=== PATIENT | male | born 1960 | race Caucasian/White ===

== ENCOUNTER 2017-08-06 18:23 | Inpatient (IN) | payer SELFPAY ==
[~2017-08-06 18:23] MED LIST: ASPI81TA82 PO; CARV3.125 PO; LISI5 PO; MECL25 PO
[2017-08-06 18:28] VITALS: BP 146/88; PULSE 75; RESP 18; TEMP 98.5; O2SAT 98
[2017-08-06 18:58] LABS: AUTOMATED NEUTROPHIL # 6.8 TH/MM3 (1.8-7.7); BASOPHIL # 0.1 TH/MM3 (0-0.2); BASOPHIL % 0.8 % (0.0-2.0); EOSINOPHIL # 0.3 TH/MM3 (0-0.4); EOSINOPHIL % 3.2 % (0.0-4.0); HEMATOCRIT 40.3 % (39.0-51.0); HEMOGLOBIN 13.5 GM/DL (13.0-17.0); LYMPH % 19.6 % (9.0-44.0); LYMPHOCYTE # 1.9 TH/MM3 (1.0-4.8); MEAN CELL VOLUME 92.6 FL (80.0-100.0); MEAN CORPUSCULAR HEMOGLOBIN 31.1 PG (27.0-34.0); MEAN CORPUSCULAR HGB CONC 33.6 % (32.0-36.0); MEAN PLATELET VOLUME 8.6 FL (7.0-11.0); MONO % 8.1 % (0.0-8.0); MONOCYTE # 0.8 TH/MM3 (0-0.9); NEUT % 68.3 % (16.0-70.0); PLATELET COUNT 192 TH/MM3 (150-450); RED BLOOD COUNT 4.35 MIL/MM3 (4.50-5.90); RED CELL DISTRIBUTION WIDTH 13.7 % (11.6-17.2); WHITE BLOOD COUNT 9.9 TH/MM3 (4.0-11.0)
[2017-08-06 19:10] LABS: BICARBONATE 25.1 MEQ/L (21.0-32.0); BLOOD UREA NITROGEN 32 MG/DL (7-18); CALCIUM 8.4 MG/DL (8.5-10.1); CHLORIDE 107 MEQ/L (98-107); CREATININE 1.56 MG/DL (0.60-1.30); GLOMERULAR FILTRATION RATE 46 ML/MIN (>89); GLUCOSE,RANDOM 130 MG/DL (74-106); SODIUM (NA) 139 MEQ/L (136-145)
[2017-08-06 19:14] LABS: TROPONIN I 0.09 NG/ML (0.02-0.05)
[2017-08-06] MEDS ORDERED: SODIUM CHLOR 0.9% 1000 ML INJ 1,000 ML IV ONE (19:30)
--- NOTE | 2017-08-06 19:41 | PD ---
HPI Chief Complaint: OD/ Ingestion Time Seen by Provider: 19:13 Travel History International Travel<30 days: No Contact w/Intl Traveler<30days: No Traveled to known affect area: No History of Present Illness HPI 57-year-old male arrives to the ER with complaints of abusing methamphetamines and cocaine. He also reports chest pain for 4 weeks a few times daily. He reports visual problems with objects in his hhysh-no-pusy evidently shifting back and forth and to and fro. He denies suicidal/homicidal ideation. He had aortic valve replacement. He reports several years of sobriety with relapse just yesterday. PFSH Past Medical History Atrial Fibrillation: Yes Cardiovascular Problems: Yes (ENDOCARDITIS) Diminished Hearing: No Past Surgical History Cardiac Surgery: Yes (AORTIC VALVE REPLACEMENT) Social History Alcohol Use: Yes Tobacco Use: Yes (1/2 PPD ) Substance Use: No (FORMER COCAINE IV DRUG USE) Allergies-Medications (Allergen,Severity, Reaction): Coded Allergies: No Known Allergies (Verified Adverse Reaction, Unknown, 08/06/17) Reported Meds & Prescriptions Reported Meds & Active Scripts Active Antivert (Meclizine HCl) 25 Mg Tab 25 Mg PO Q8HR PRN Prinivil 5 mg (Lisinopril) 5 Mg Tab 5 Mg PO DAILY 30 Days Coreg 3.125 mg (Carvedilol) 3.125 Mg Tab 3.125 Mg PO Q12HR 30 Days Aspir-81 (Aspirin) 81 Mg Tab 81 Mg PO DAILY 30 Days Review of Systems Except as stated in HPI: all other systems reviewed are Neg General / Constitutional: No: Fever Physical Exam Narrative GENERAL: 57-year-old male pleasant well-nourished well-developed Vital Signs Date Time Temp Pulse Resp B/P (MAP) Pulse Ox O2 Delivery O2 Flow Rate FiO2 08/06/17 18:28 98.5 75 18 146/88 (107) 98 SKIN: Warm and dry. HEAD: Atraumatic. Normocephalic. EYES: Pupils equal and round. No scleral icterus. No injection or drainage. ENT: No nasal bleeding or discharge. Mucous membranes pink and moist. NECK: Trachea midline. No JVD. CARDIOVASCULAR: Regular rate and rhythm. RESPIRATORY: No accessory muscle use. Clear to auscultation. Breath sounds equal bilaterally. GASTROINTESTINAL: Abdomen soft, non-tender, nondistended. Hepatic and splenic margins not palpable. MUSCULOSKELETAL: Extremities without clubbing, cyanosis, or edema. No obvious deformities. NEUROLOGICAL: Awake and alert. No obvious cranial nerve deficits. Motor grossly within normal limits. Five out of 5 muscle strength in the arms and legs. Normal speech. PSYCHIATRIC: Pressured speech. Reasonably cooperative. Data Data Last Documented VS Vital Signs Date Time Temp Pulse Resp B/P (MAP) Pulse Ox O2 Delivery O2 Flow Rate FiO2 08/06/17 18:28 98.5 75 18 146/88 (107) 98 Orders Orders Electrocardiogram (08/06/17 18:31) Complete Blood Count With Diff (08/06/17 18:31) Basic Metabolic Panel (Bmp) (08/06/17 18:31) Ckmb (Isoenzyme) Profile (08/06/17 18:31) Troponin I (08/06/17 18:31) Iv Access Insert/Monitor (08/06/17 18:31) Ecg Monitoring (08/06/17 18:31) Oxygen Administration (08/06/17 18:31) Oximetry (08/06/17 18:31) Drug Screen, Random Urine (08/06/17 18:31) CKMB (08/06/17 18:46) CKMB% (08/06/17 18:46) Sodium Chlor 0.9% 1000 Ml Inj (Ns 1000 M (08/06/17 19:30) Chest, Pa & Lat (08/06/17 ) Lorazepam Inj (Ativan Inj) (08/06/17 19:45) Aspirin (Aspirin) (08/06/17 19:45) Nitroglycerin 2% Oint (Nitroglycerin 2% (08/06/17 19:45) Morphine Inj (Morphine Inj) (08/06/17 19:45) Enoxaparin Inj (Lovenox Inj) (08/06/17 20:00) Admit Order (Ed Use Only) (08/06/17 ) 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 MARCO.Q8H (08/06/17 20:10) Vital Signs (Adult) Q4H (08/06/17 20:10) Diet Heart Healthy (08/07/17 Breakfast) Activity Bed Rest (08/06/17 20:10) Labs Laboratory Tests Test 08/06/17 18:46 White Blood Count 9.9 TH/MM3 Red Blood Count 4.35 MIL/MM3 Hemoglobin 13.5 GM/DL Hematocrit 40.3 % Mean Corpuscular Volume 92.6 FL Mean Corpuscular Hemoglobin 31.1 PG Mean Corpuscular Hemoglobin Concent 33.6 % Red Cell Distribution Width 13.7 % Platelet Count 192 TH/MM3 Mean Platelet Volume 8.6 FL Neutrophils (%) (Auto) 68.3 % Lymphocytes (%) (Auto) 19.6 % Monocytes (%) (Auto) 8.1 % Eosinophils (%) (Auto) 3.2 % Basophils (%) (Auto) 0.8 % Neutrophils # (Auto) 6.8 TH/MM3 Lymphocytes # (Auto) 1.9 TH/MM3 Monocytes # (Auto) 0.8 TH/MM3 Eosinophils # (Auto) 0.3 TH/MM3 Basophils # (Auto) 0.1 TH/MM3 CBC Comment DIFF FINAL Differential Comment Blood Urea Nitrogen 32 MG/DL Creatinine 1.56 MG/DL Random Glucose 130 MG/DL Calcium Level 8.4 MG/DL Sodium Level 139 MEQ/L Potassium Level 3.9 MEQ/L Chloride Level 107 MEQ/L Carbon Dioxide Level 25.1 MEQ/L Anion Gap 7 MEQ/L Estimat Glomerular Filtration Rate 46 ML/MIN Total Creatine Kinase 245 U/L Creatine Kinase MB 3.0 NG/ML Troponin I 0.09 NG/ML MDM Medical Decision Making Medical Screen Exam Complete: Yes Emergency Medical Condition: Yes Medical Record Reviewed: Yes Differential Diagnosis Altered mental status/psychosis due to infection/environmental exposure/ metabolic abnormality, polypharmacy, alcohol abuse/intoxication, illicit or prescribed drug abuse, malingering/secondary gain, non-organic psychiatric disease, NSTEMI, unstable angina, coronary vasospasm, PE, PTX, aortic dissection , pericarditis, myocarditis, endocarditis, PNA, esophageal disease, aneurysm, musculoskeletal etiologies, anxiety, cocaine/sympathomimetic abuse Narrative Course CBC & BMP Diagram 08/06/17 18:46 Calcium Level 8.4 L Tn 0.09 EKG: Sinus, rate 71, LBBB unchanged from 09/2014 CXR: no dense consolidation Elevated Tn with polysubstance abuse, cocaine and amphetamine, with chest pain. Admission for serial enzymes and cardiology consultation. Discussed with Dr. Yee who advises Lovenox injection Discussed with Dr. Preston for [facility] Critical Care Narrative Aggregate critical care time was 40 minutes. Time to perform other separately billable procedures was not included in the critical care time. My time did not include minutes spent treating any other patients simultaneously or on activities that did not directly contribute to the patient's treatment. The services I provided to this patient were to treat and/or prevent clinically significant deterioration that could result in: Cardiopulmonary arrest I provided critical care services requiring my management, as noted below: Chart data review, documentation time, medication orders and management, vital sign assessments/reviewing monitor data, ordering and reviewing lab tests, ordering and interpreting/reviewing x-rays and diagnostic studies, care of the patient and discussion of the patient with the admitting physicians. Diagnosis Primary Impression: Vertigo Additional Impressions: Chest pain Qualified Codes: R07.9 - Chest pain, unspecified Elevated troponin Admitting Information Admitting Physician Requests: Jose Meade MD Aug 06, 2017 19:41
[2017-08-06] MEDS ORDERED: NITROGLYCERIN 2% OINT 1 GM PACKET TOP ONE (19:45)
[2017-08-06] MEDS ORDERED: ASPIRIN 325 MG TAB PO ONE (19:45)
[2017-08-06] MEDS ORDERED: MORPHINE SULFATE 4 MG/ML INJ IV PUSH ONE (19:45)
[2017-08-06] MEDS ORDERED: LORazepam 2 MG/ML VIAL IV PUSH ONE (19:45)
--- NOTE | 2017-08-06 19:45 | RADRPT ---
EXAM DATE/TIME: 08/06/2017 19:09 [facility] COMPARISON: No previous studies available for comparison. INDICATIONS : Chest pain, shortness of breath. MEDICAL HISTORY : Smoker. SURGICAL HISTORY : Aortic valve replacement. ENCOUNTER: Initial ACUITY: 1 month PAIN SCORE: 6/10 LOCATION: Right chest FINDINGS: No infiltrate, effusion or pneumothorax. Lungs are hyperexpanded. Heart size stable, upper limits of normal. There is been previous median sternotomy and aortic valve replacement. CONCLUSION: No acute cardiopulmonary disease demonstrated. Hyperexpanded but clear lungs. Tariq Montero MD on August 06, 2017 at 19:42 Board Certified Radiologist. This report was verified electronically.
[2017-08-06] MEDS ORDERED: ENOXAPARIN SODIUM 80 MG/0.8 ML SYRINGE SQ ONE (20:00)
[2017-08-06 20:15] VITALS: O2SAT 98
[2017-08-06] MEDS ORDERED: LORazepam 2 MG/ML VIAL IV PUSH PRN (20:15)
[2017-08-06] MEDS ORDERED: MORPHINE SULFATE 2 MG/ML SYRINGE IV PUSH PRN (20:15)
[2017-08-06] MEDS ORDERED: NITROGLYCERIN 2% OINT 1 GM PACKET TOPICAL PRN (20:15)
[2017-08-06] MEDS ORDERED: ACETAMINOPHEN 325 MG TAB PO PRN (20:15)
[2017-08-06] MEDS ORDERED: ACETAMINOPHEN/HYDROcodone 325 MG/5 MG TAB PO PRN (20:15)
[2017-08-06] MEDS ORDERED: SODIUM CHLORIDE 0.9% FLUSH 10 ML FLUSH IV FLUSH PRN (20:15)
[2017-08-06] MEDS ORDERED: BISACODYL 10 MG SUPP RECTAL PRN (20:15)
[2017-08-06] MEDS ORDERED: ONDANSETRON HCL 4 MG/2 ML VIAL IVP PRN (20:15)
[2017-08-06] MEDS ORDERED: MAGNESIUM HYDROXIDE SUSP 30 ML CUP PO PRN (20:15)
[2017-08-06] MEDS ORDERED: LACTULOSE SYRUP 20 GM/30 ML CUP PO PRN (20:15)
[2017-08-06] MEDS ORDERED: SENNOSIDES 8.6 MG TAB PO PRN (20:15)
--- NOTE | 2017-08-06 20:19 | HHI.HP ---
HPI Service [facility] Primary Care Physician No Primary Care Physician Admission Diagnosis Elevated Tn; PSA; Chest Pain Diagnoses: (1) Chest pain Diagnosis: Principal (2) Elevated troponin Diagnosis: Principal (3) Cocaine abuse Diagnosis: Principal (4) Renal insufficiency Diagnosis: Principal Travel History International Travel<30 Days: No Contact w/Intl Traveler <30 Da: No Traveled to Known Affected Are: No History of Present Illness This is a 57-year-old male with a PMH of IVDU, Endocarditis s/p AVR and A-fib who was brought to the ER by friend secondary to complaints of chest pain. 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 Pt admits to recent relapse w/ significant IV drug use in the last 2wks-including Cocaine, Heroin and Methamphetamines. States "I haven't slept in days". Today, notes episode of chest pain, now resolved. Denies fever, chills, cough or SOB. On arrival, BP 146/88, HR 75, O2 sat 98% on RA, Afebrile. CBC unremarkable. Creatinine 1.56, previously 1.11 on 11/17/2015. Troponin 0.09. EKG with LBBB, similar in comparison to previous. UA negative for UTI. CXR with no acute findings. Cardiology Consulted by ER physician, recommended Lovenox. Review of Systems Except as stated in HPI: all other systems reviewed are Neg ROS: 14 point review of systems otherwise negative. Past Family Social History Past Medical History PMH: IVDU, Endocarditis s/p AVR and A-fib Past Surgical History PAST SURGICAL HISTORY: Aortic Valve Replacement Allergies: Coded Allergies: No Known Allergies (Verified Adverse Reaction, Unknown, 08/06/17) Family History PAST FAMILY HISTORY: Reviewed. No h/o DM or CAD Social History PAST SOCIAL HISTORY: Positive for alcohol. Smokes 1ppd. +IVDU w/ Cocaine/Heroin /Methamphetamines Physical Exam Vital Signs Vital Signs Date Time Temp Pulse Resp B/P (MAP) Pulse Ox O2 Delivery O2 Flow Rate FiO2 08/06/17 20:15 100 Room Air 08/06/17 20:15 98 Room Air 08/06/17 18:28 98.5 75 18 146/88 (107) 98 Physical Exam PE: GENERAL: Middle-aged white male in no acute distress, +anxious, tangential speech. Friend at bedside HEENT: LOKESH, EOMI. No scleral icterus or conjunctival pallor. No lid lag or facial droop. CARDIOVASCULAR: Regular rate and rhythm. No obvious murmurs to auscultation. No chest tenderness to palpation. RESPIRATORY: No obvious rhonchi or wheezing. Clear to auscultation. Breath sounds equal bilaterally. GASTROINTESTINAL: Abdomen soft, non-tender, nondistended. BS normal. MUSCULOSKELETAL: Extremities without clubbing, cyanosis, or edema. No obvious deformities. NEUROLOGICAL: Awake, alert and oriented x4. No focal neurologic deficits. Moving both upper and lower extremities spontaneously. Laboratory Laboratory Tests Test 08/06/17 18:46 White Blood Count 9.9 Red Blood Count 4.35 Hemoglobin 13.5 Hematocrit 40.3 Mean Corpuscular Volume 92.6 Mean Corpuscular Hemoglobin 31.1 Mean Corpuscular Hemoglobin Concent 33.6 Red Cell Distribution Width 13.7 Platelet Count 192 Mean Platelet Volume 8.6 Neutrophils (%) (Auto) 68.3 Lymphocytes (%) (Auto) 19.6 Monocytes (%) (Auto) 8.1 Eosinophils (%) (Auto) 3.2 Basophils (%) (Auto) 0.8 Neutrophils # (Auto) 6.8 Lymphocytes # (Auto) 1.9 Monocytes # (Auto) 0.8 Eosinophils # (Auto) 0.3 Basophils # (Auto) 0.1 CBC Comment DIFF FINAL Differential Comment Blood Urea Nitrogen 32 Creatinine 1.56 Random Glucose 130 Calcium Level 8.4 Sodium Level 139 Potassium Level 3.9 Chloride Level 107 Carbon Dioxide Level 25.1 Anion Gap 7 Estimat Glomerular Filtration Rate 46 Total Creatine Kinase 245 Creatine Kinase MB 3.0 Troponin I 0.09 Result Diagram: 08/06/17184508/06/171845 Caprini VTE Risk Assessment Caprini VTE Risk Assessment: Mod/High Risk (score >= 2) Caprini Risk Assessment Model Point Value = 1 Point Value = 2 Point Value = 3 Point Value = 5 Age 41-60 Minor surgery BMI > 25 kg/m2 Swollen legs Varicose veins or History of unexplained or recurrent spontaneous Oral contraceptives or hormone replacement Sepsis (< 1 month) Serious lung disease, including pneumonia (< 1 month) Abnormal pulmonary function Acute myocardial infarction Congestive heart failure (< 1 month) History of inflammatory bowel disease Medical patient at bed rest Age 61-74 Arthroscopic surgery Major open surgery (> 45 min) Laparoscopic surgery (> 45 min) Malignancy Confined to bed (> 72 hours) Immobilizing plaster cast Central venous access Age >= 75 History of VTE Family history of VTE Factor V Leiden Prothrombin [id number] Lupus anticoagulant Anticardiolipin antibodies Elevated serum homocysteine Heparin-induced thrombocytopenia Other congenital or acquired thrombophilia Stroke (< 1 month) Elective arthroplasty Hip, pelvis, or leg fracture Acute spinal cord injury (< 1 month) Prophylaxis Regimen Total Risk Factor Score Risk Level Prophylaxis Regimen 0-1 Low Early ambulation 2 Moderate Order ONE of the following: *Sequential Compression Device (SCD) *Heparin 5000 units SQ BID 3-4 Higher Order ONE of the following medications: *Heparin 5000 units SQ TID *Enoxaparin/Lovenox 40 mg SQ daily (WT < 150 kg, CrCl > 30 mL/min) *Enoxaparin/Lovenox 30 mg SQ daily (WT < 150 kg, CrCl > 10-29 mL/min) *Enoxaparin/Lovenox 30 mg SQ BID (WT < 150 kg, CrCl > 30 mL/min) AND/OR *Sequential Compression Device (SCD) 5 or more Highest Order ONE of the following medications: *Heparin 5000 units SQ TID (Preferred with Epidurals) *Enoxaparin/Lovenox 40 mg SQ daily (WT < 150 kg, CrCl > 30 mL/min) *Enoxaparin/Lovenox 30 mg SQ daily (WT < 150 kg, CrCl > 10-29 mL/min) *Enoxaparin/Lovenox 30 mg SQ BID (WT < 150 kg, CrCl > 30 mL/min) AND *Sequential Compression Device (SCD) Assessment and Plan Problem List: (1) Chest pain ICD Code: R07.9 - Chest pain, unspecified Status: Resolved (2) Elevated troponin ICD Code: R74.8 - Abnormal levels of other serum enzymes Status: Acute (3) Cocaine abuse ICD Code: F14.10 - Cocaine abuse, uncomplicated (4) Renal insufficiency ICD Code: N28.9 - Disorder of kidney and ureter, unspecified Assessment and Plan A/P: 1. Chest Pain: acute onset of chest pain today, likely related to recent Cocaine/Amphetamine IVDU, however will R/o ACS. Admit to [facility], telemetry. Morphine/Ativan/NTG as needed for chest pain. 2. Elevated Trop: ?drug induced vs true ACS, check serial cardiac enzymes as above. Dr. Yee consulted by ER physician, recommended Lovenox, will place formal consult. CXR w/ no acute findings, images reviewed by me. 3. PRICILLA: Creatinine 1.56, previously 1.11 on , likely secondary to dehydration/drug use. U/a negative for UTI. IVF for hydration, repeat labs in am. 4. Cocaine Abuse: recent relapse w/ IVDU, +Cocaine/Heroin/Methamphetamines, reports intermittent hallucinations, +insomnia x3 days. Ativan prn for withdrawal/agitation. 5. DVT Prophylaxis: Lovenox 6. Social work for d/c planning as needed. 7. Case discussed w/ ER physician at length, labs/records/imaging reviewed by me. Physician Certification 2 Midnight Certification Type: Admission for Inpatient Services Order for Inpatient Services The services are ordered in accordance with Medicare regulations or non- Medicare payer requirements, as applicable. In the case of services not specified as inpatient-only, they are appropriately provided as inpatient services in accordance with the 2-midnight benchmark. Estimated LOS (days): 2 days is the estimated time the patient will need to remain in the hospital, assuming treatment plan goals are met and no additional complications. Post-Hospital Plan: Not yet determined Problem Qualifiers (1) Chest pain: Qualified Codes: R07.9 - Chest pain, unspecified Chantelle Preston MD Aug 06, 2017 20:19
[2017-08-06 20:59] LABS: BILIRUBIN, URINE NEG (NEG); BLOOD, URINE NEG (NEG); GLUCOSE,URINE NEG (NEG); KETONE, URINE NEG (NEG); MUCUS URINE FEW /lpf (OCC); NITRITE,URINE NEG (NEG); URINE COLOR YELLOW (YELLW/STRAW); URINE LEUKOCYTE ESTERASE NEG (NEG)
[2017-08-06] MEDS: DOCUSATE SODIUM 50 MG/SENNA 8.6 MG TAB PO SCH (21:00)
[2017-08-06] MEDS: SODIUM CHLOR 0.9% 1000 ML INJ 1,000 ML IV SCH (21:15)
[2017-08-06 21:22] VITALS: BP 114/75; PULSE 62; RESP 16; O2SAT 99
[2017-08-06] MEDS: SODIUM CHLORIDE 0.9% FLUSH 10 ML FLUSH IV FLUSH SCH (22:06)
[2017-08-06 22:13] VITALS: BP 109/62; PULSE 72; RESP 20; TEMP 97.8; O2SAT 97
[2017-08-07] VITALS (10 sets, daily range): BP systolic 96–120; BP diastolic 62–76; PULSE 55–80; RESP 20; TEMP 97.1–98.4; O2SAT 94–97
[2017-08-07 05:10] LABS: BASOPHIL # 0.1 TH/MM3 (0-0.2); BASOPHIL % 1.6 % (0.0-2.0); EOSINOPHIL # 0.4 TH/MM3 (0-0.4); EOSINOPHIL % 5.3 % (0.0-4.0); HEMATOCRIT 38.4 % (39.0-51.0); HEMOGLOBIN 12.9 GM/DL (13.0-17.0); LYMPH % 31.7 % (9.0-44.0); LYMPHOCYTE # 2.4 TH/MM3 (1.0-4.8); MEAN CELL VOLUME 91.8 FL (80.0-100.0); MEAN CORPUSCULAR HEMOGLOBIN 30.9 PG (27.0-34.0); MEAN CORPUSCULAR HGB CONC 33.7 % (32.0-36.0); MEAN PLATELET VOLUME 8.7 FL (7.0-11.0); MONO % 9.1 % (0.0-8.0); MONOCYTE # 0.7 TH/MM3 (0-0.9); NEUT % 52.3 % (16.0-70.0); PLATELET COUNT 192 TH/MM3 (150-450); RED BLOOD COUNT 4.18 MIL/MM3 (4.50-5.90); RED CELL DISTRIBUTION WIDTH 13.4 % (11.6-17.2); WHITE BLOOD COUNT 7.6 TH/MM3 (4.0-11.0)
[2017-08-07 05:23] LABS: ALBUMIN 3.1 GM/DL (3.4-5.0); AST (GOT) 18 U/L (15-37); BICARBONATE 25.8 MEQ/L (21.0-32.0); BLOOD UREA NITROGEN 27 MG/DL (7-18); CHLORIDE 109 MEQ/L (98-107); CREATININE 1.24 MG/DL (0.60-1.30); GLOMERULAR FILTRATION RATE 60 ML/MIN (>89); GLUCOSE,RANDOM 84 MG/DL (74-106); SODIUM (NA) 141 MEQ/L (136-145)
[2017-08-07 05:25] LABS: ALT (GPT) 20 U/L (12-78)
[2017-08-07 05:29] LABS: ALKALINE PHOSPHATASE 56 U/L (45-117); TOTAL BILIRUBIN ADULT 1.1 MG/DL (0.2-1.0); TOTAL PROTEIN 6.1 GM/DL (6.4-8.2)
[2017-08-07] MEDS: DOCUSATE SODIUM 50 MG/SENNA 8.6 MG TAB PO SCH ×2 (08:57→21:00)
[2017-08-07] MEDS: SODIUM CHLOR 0.9% 1000 ML INJ 1,000 ML IV SCH (08:57)
[2017-08-07] MEDS: SODIUM CHLORIDE 0.9% FLUSH 10 ML FLUSH IV FLUSH SCH ×2 (08:57→21:03)
[2017-08-07] MEDS: ENOXAPARIN SODIUM 80 MG/0.8 ML SYRINGE SQ SCH ×2 (08:57→21:00)
--- NOTE | 2017-08-07 09:58 | MB ---
cc: Katelynn Yee MD DATE: 08/07/2017 REASON FOR CONSULTATION: Chest pain, indeterminate troponin. HISTORY OF PRESENT ILLNESS: Mr. Dylan Mcfarland is a 57-year-old man who does have a history of IV drug use, endocarditis, bovine AVR in 2013. He, per the records, did not have any coronary artery disease at the time of the catheterization. The patient reports that he had been free from any drugs for the last 2 years. He had a relapse and did IV cocaine and meth. He subsequently "felt like I was going to " and came to the hospital. This morning he continues to have pains all over. He reports that he is feeling much better. PAST MEDICAL HISTORY: Significant for substance abuse, tobacco abuse, bovine AVR for endocarditis and left bundle branch block. ALLERGIES: NO KNOWN DRUG ALLERGIES. OUTPATIENT MEDICATIONS: None. REVIEW OF SYSTEMS: Except as mentioned in the HPI, all 12 systems are negative. FAMILY HISTORY: Negative for CAD. SOCIAL HISTORY: The patient does smoke a pack a day. He denied any alcohol use to me; however, there is documentation otherwise. He also does IV drug use. PHYSICAL EXAMINATION: VITAL SIGNS: Temperature 97.7, heart rate 72, respirations 20, blood pressure 101/62. GENERAL: He is a thin man who is in no apparent distress. NECK: Free from JVD. LUNGS: Clear to auscultation. CARDIOVASCULAR: He has a normal S1 and S2. There is a soft II/ systolic murmur. No rubs or gallops are appreciated. ABDOMEN: Soft. EXTREMITIES: Free from edema. DIAGNOSTIC STUDIES: EKG does show a normal sinus rhythm with a left bundle branch block. LABORATORY VALUES: Significant for an initial creatinine 1.56, that is 1.24 today. His serial troponins are 0.09/0.12/0.10. IMPRESSIONS: 1. Chest pain and indeterminate troponin -- The patient does not have any prior coronary disease. He reports he has been asymptomatic except for when he did the cocaine. After further discussion, the patient wants further evaluation with a nuclear stress test. He unfortunately had breakfast this morning and thus will be rescheduled for this tomorrow. 2. Bovine aortic valve replacement -- The patient will undergo echocardiogram. We did discuss endocarditis prophylaxis and that he is at extremely high risk for repeat endocarditis and that the IV drug use is worst case scenario for him in this regard. 3. Cardiomyopathy -- Currently echo in 2016, he does have an EF of 35-40%. Beta blockers are felt relatively contraindicated. As well, DENISE inhibitor is felt relatively contraindicated with his hypotension and a systolic pressure of 101. 4. Disposition -- I the nuclear stress test is not ischemic, it would be reasonable for him to be discharged tomorrow. MD AC Celeste/BHANU , 09:39 AM , 09:57 AM
--- NOTE | 2017-08-07 10:47 | HHI.PR ---
Subjective Remarks Patient reports is feeling okay. He denies any chest pain. No shortness of breath. Objective Vitals Vital Signs Date Time Temp Pulse Resp B/P (MAP) Pulse Ox O2 Delivery O2 Flow Rate FiO2 08/07/17 08:00 97.1 60 20 96/71 (79) 94 08/07/17 04:04 72 08/07/17 04:00 97.7 55 20 101/62 (75) 95 08/07/17 00:17 62 08/07/17 00:00 97.8 67 20 110/70 (83) 97 08/06/17 23:03 Room Air 08/06/17 22:13 97.8 72 20 109/62 (78) 97 08/06/17 21:22 62 16 114/75 (88) 99 Room Air 08/06/17 20:15 100 Room Air 08/06/17 20:15 98 Room Air 08/06/17 18:28 98.5 75 18 146/88 (107) 98 Result Diagram: 08/07/17 0420 08/07/17 0420 Objective Remarks GENERAL: This is a well-nourished, well-developed patient, in no apparent distress. CARDIOVASCULAR: Normal rate and regular rhythm. 3 out of 6 ROSETTE murmur best heard over the right upper sternal border. RESPIRATORY: Good respiratory efforts. Breath sounds equal and clear to auscultation bilaterally. GASTROINTESTINAL: Abdomen soft, non-tender, non-distended. Normal active bowel sounds MUSCULOSKELETAL: Extremities without cyanosis, or edema. NEURO: Alert & Oriented x4 to person, place, time, situation. Moves all ext x4 PSYCH: Appropriate mood and affect. A/P Problem List: (1) Chest pain ICD Code: R07.9 - Chest pain, unspecified Status: Resolved (2) Elevated troponin ICD Code: R74.8 - Abnormal levels of other serum enzymes Status: Acute (3) Cocaine abuse ICD Code: F14.10 - Cocaine abuse, uncomplicated (4) Renal insufficiency ICD Code: N28.9 - Disorder of kidney and ureter, unspecified (5) Cardiomyopathy ICD Code: I42.9 - Cardiomyopathy, unspecified Status: Acute Assessment and Plan 57-year-old male with: Chest Pain: acute onset of chest pain, likely related to recent Cocaine/ Amphetamine IVDU, cardiac enzymes essentially flat. Cardiology consulted. 2D echo and nuclear stress test ordered. Morphine/Ativan/NTG as needed for chest pain. Cardiomyopathy/history of aortic valve replacement: - Agree with cardiology, beta serenity relatively contraindicated given persistent cocaine use. Currently cannot tolerate DENISE inhibitor due to borderline low blood pressure. No evidence of fluid overload currently. PRICILLA: Creatinine 1.56 on presentation. U/a negative for UTI. Renal function much improved. Discontinue IV fluid. Avoid nephrotoxins. Polysubstance abuse including: recent relapse w/ IVDU, +Cocaine/Heroin/ Methamphetamines, reports intermittent hallucinations, +insomnia x3 days. Ativan prn for withdrawal/agitation. Medicine reports he was sober for 4 years prior to his current relapse. Patient has been extensively counseled. He is advised to maintain contact with his sponsor DVT Prophylaxis: Lovenox Problem Qualifiers (1) Chest pain: Qualified Codes: R07.9 - Chest pain, unspecified Arabella Tamayo MD Aug 07, 2017 10:47
--- NOTE | 2017-08-07 13:17 | ECHRPT ---
Indication: HX BOVINE AR, EF 40 CONCLUSIONS Moderately dilated left ventricle. Moderate concentric left ventricular hypertrophy. The left ventricular systolic function is severely reduced with an estimated ejection fraction in th e range of 20-25%. The right ventricular systoilc function is mildly decreased. The left atrial size is upper limits of normal. Trace to mild mitral valve regurgitation. The aortic valve prosthesis is normal to two-dimensional, color flow and Doppler interrogation. Trace aortic valve regurgitation. BP: / HR: Rhythm: MEASUREMENTS (Male / Female) Normal Values Technical Quality: 2D ECHO LV Diastolic Diameter PLAX 5.9 cm 4.2 - 5.9 / 3.9 - 5.3 cm LV Systolic Diameter PLAX 5.4 cm IVS Diastolic Thickness 1.5 cm 0.6 - 1.0 / 0.6 - 0.9 cm LVPW Diastolic Thickness 1.1 cm 0.6 - 1.0 / 0.6 - 0.9 cm LV Relative Wall Thickness 0.4 RV Internal Dim ED PLAX 2.2 cm LA Systolic Diameter LX 4.0 cm 3.0 - 4.0 / 2.7 - 3.8 cm M-MODE AV Cusp Separation MM 1.8 cm DOPPLER AV Peak Velocity 277.5 cm/s AV Peak Gradient 30.8 mmHg AV Mean Gradient 18.0 mmHg AV Velocity Time Integral 57.9 cm LVOT Peak Velocity 91.0 cm/s LVOT Peak Gradient 3.3 mmHg LVOT Velocity Time Integral 20.0 cm Mitral E Point Velocity 91.3 cm/s Mitral A Point Velocity 69.1 cm/s Mitral E to A Ratio 1.3 TR Peak Velocity 299.0 cm/s TR Peak Gradient 35.8 mmHg Right Atrial Pressure 5.0 mmHg Pulmonary Artery Systolic Pressu 40.8 mmHg Right Ventricular Systolic Press 40.8 mmHg FINDINGS LEFT VENTRICLE Moderately dilated left ventricle. Moderate concentric left ventricular hypertrophy. The left ventricular systolic function is severely reduced with an estimated ejection fraction in th e range of 20-25%. There is global left ventricular dysfunction. RIGHT VENTRICLE The right ventricular systoilc function is mildly decreased. LEFT ATRIUM The left atrial size is upper limits of normal. RIGHT ATRIUM The right atrial size is normal. ATRIAL SEPTUM Normal atrial septal thickness without atrial level shunting by limited color doppler interrogation. AORTA The aortic root and proximal ascending aorta are normal in size on limited imaging. MITRAL VALVE Trace to mild mitral valve regurgitation. Moderate thickening of the mitral valve leaflets. AORTIC VALVE The aortic valve prosthesis is normal to two-dimensional, color flow and Doppler interrogation. Trace aortic valve regurgitation. TRICUSPID VALVE No tricuspid valve stenosis or regurgitation. Moderate thickening of the tricuspid valve leaflets. PULMONARY VALVE No pulmonary valve regurgitation or stenosis. VESSELS The inferior vena cava is normal in size. PERICARDIUM No pericardial effusion. Katelynn Yee MD, FACC (Electronically Signed) Final Date:07 August 2017 13:16
--- NOTE | 2017-08-07 14:25 | EKG ---
Date Performed: 08/06/2017 Time Performed: 18:38:50 PTAGE: 57 years EKG: Sinus rhythm POSSIBLE LEFT ATRIAL ENLARGEMENT MARKED LEFT AXIS DEVIATION LEFT BUNDLE BRANCH BLOCK ABNORMAL ECG Si nce PREVIOUS TRACING , no significant change noted PREVIOUS TRACIN11/17/2015 22.38 DOCTOR: Katelynn Yee Interpretating Date/Time 08/07/2017 14:23:29
[2017-08-08] VITALS: BP 118/71; PULSE 67; RESP 20; TEMP 98.5; O2SAT 95
[2017-08-08 04:00] VITALS: BP 127/82; PULSE 55; PULSE 72; RESP 18; TEMP 98.4; O2SAT 95
[2017-08-08] MEDS: ENOXAPARIN SODIUM 80 MG/0.8 ML SYRINGE SQ SCH (07:59)
[2017-08-08] MEDS: SODIUM CHLORIDE 0.9% FLUSH 10 ML FLUSH IV FLUSH SCH (07:59)
[2017-08-08] MEDS: DOCUSATE SODIUM 50 MG/SENNA 8.6 MG TAB PO SCH (07:59)
[2017-08-08 08:00] VITALS: BP_SYST 130; BP_SYST 135; BP_DIAS 83; BP_DIAS 91; PULSE 66; PULSE 70; PULSE 74; RESP 20; TEMP 97.4; TEMP 98.1; O2SAT 96; O2SAT 97
--- NOTE | 2017-08-08 08:38 | PD.CARD.PN ---
Subjective Subjective Remarks PT without CV complaints Objective Medications Current Medications Medications (Trade) Dose Ordered Sig/Lois Route Start Time Stop Time Status Last Admin (Nitroglycerin 2% Oint) 0.5 inch Q6HR PRN TOPICAL 08/06/17 20:15 (Ativan Inj) 1 mg Q2H PRN IV PUSH 08/06/17 20:15 (NS Flush) 2 ml UNSCH PRN IV FLUSH 08/06/17 20:15 (NS Flush) 2 ml BID IV FLUSH 08/06/17 21:00 08/08/17 07:59 (Zofran Inj) 4 mg Q6H PRN IVP 08/06/17 20:15 (Lovenox Inj) 70 mg BID SQ 08/07/17 09:00 (Tylenol) 650 mg Q6H PRN PO 08/06/17 20:15 (Stewart 5-325 Mg) 1 tab Q4H PRN PO 08/06/17 20:15 (Morphine Inj) 2 mg Q3H PRN IV PUSH 08/06/17 20:15 (Cherri-Colace) 1 tab BID PO 08/06/17 21:00 (Milk Of Magnesia Liq) 30 ml Q12H PRN PO 08/06/17 20:15 (Senokot) 17.2 mg Q12H PRN PO 08/06/17 20:15 (Dulcolax Supp) 10 mg DAILY PRN RECTAL 08/06/17 20:15 (Lactulose Liq) 30 ml DAILY PRN PO 08/06/17 20:15 Vital Signs / I&O Vital Signs Date Time Temp Pulse Resp B/P (MAP) Pulse Ox O2 Delivery O2 Flow Rate FiO2 08/08/17 04:00 55 08/08/17 04:00 98.4 72 18 127/82 (97) 95 08/08/17 00:00 98.5 67 20 118/71 (87) 95 08/07/17 23:49 69 08/07/17 20:03 79 08/07/17 20:00 97.8 71 20 120/70 (87) 97 08/07/17 19:45 Room Air 08/07/17 16:00 67 08/07/17 16:00 98.2 71 20 119/76 (90) 97 08/07/17 12:00 58 08/07/17 12:00 98.4 80 20 115/63 (80) 97 I/O 08/07/17 08/07/17 08/07/17 08/08/17 08/08/17 08/08/17 07:00 15:00 23:00 07:00 15:00 23:00 Intake Total 620 ml 360 ml Balance 620 ml 360 ml Intake Oral 620 ml 360 ml # Voids 1 3 2 # Bowel Movements 1 0 Physical Exam GENERAL: Well developed, well nourished. No acute distress. HEENT: Jugular venous pressure is normal. CHEST: Lungs clear to auscultation bilaterally. Unlabored respiratory effort. CARDIAC: Regular rate and rhythm without S3, S4, or murmur. ABDOMEN: Soft, nontender, no hepatosplenomegaly. Bowel sounds present. EXTREMITIES: No clubbing, cyanosis, or edema. Assessment and Plan Problem List: (1) Cardiomyopathy ICD Codes: I42.9 - Cardiomyopathy, unspecified Status: Acute Plan: EF 20% by ECHO- likely related to IV drug use & malnutrition, check for ischemia -prior normal coronaries by cath 2013 -check asha- nuc stress today - start hope, BB contraindicated with cocaine -Pt aware he is at hig risk for CHF and sudden -not/poor ICD candidate secondary to noncompliance case management to try to get follow up [facility] Dispo - ok for d/c if no ischemia (2) Cocaine abuse ICD Codes: F14.10 - Cocaine abuse, uncomplicated (3) Chronic ischemic right MCA stroke ICD Codes: I69.30 - Unspecified sequelae of cerebral infarction Status: Acute Katelynn Yee MD Aug 08, 2017 08:38
[2017-08-08] MEDS ORDERED: REGADENOSON INJ 0.4 MG/5 ML SYR ONE (09:59)
--- NOTE | 2017-08-08 11:36 | RADRPT ---
EXAM DATE/TIME: 08/08/2017 09:44 [place] COMPARISON: No previous studies available for comparison. INDICATIONS : Bilateral chest pain. Angina. DOSE: 26.7 mCi Tc99m Myoview at stress. 8.1 mCi Tc99m Myoview at rest. 0.4 mg Lexiscan STRESS SYMPTOMS: Headache, hot feeling and fatigue. EJECTION FRACTION: 19% MEDICAL HISTORY : Angina. SURGICAL HISTORY : Aortic valve replacement . ENCOUNTER: Initial ACUITY: 1 day PAIN SCALE: 5/10 LOCATION: Bilateral chest TECHNIQUE: The patient underwent pharmacologic stress with infusion of prescribed dose. Continuous ECG tracing was monitored during stress. Gated SPECT imaging was performed after stress and conventional SPECT i maging was performed at rest. The examination was performed on a SPECT/CT scanner, both attenuation and non-corrected datasets were reviewed. FINDINGS: There is dilatation of ventricular cavity ejection fraction of less than 20%. There is very thin barney cardium without stress-induced ischemia. CONCLUSION: Dilatation of ventricular cavity ejection fraction of 19%. No stress-induced ischemia. RISK CATEGORY: High (>3% Annual Mortality Rate) Elton Marc MD FACR on August 08, 2017 at 11:33 Board Certified Radiologist. This report was verified electronically.
[2017-08-08] MEDS ORDERED: LISI2.5T3 PO (13:18)
--- NOTE | 2017-08-08 13:19 | HHI.DCPOC ---
Discharge Care Plan Diagnosis: (1) Cardiomyopathy (2) Chest pain (3) Cocaine abuse Goals to Promote Your Health * To prevent worsening of your condition and complications * To maintain your health at the optimal level Directions to Meet Your Goals Take your medications as prescribed Follow your dietary instruction Follow activity as directed Keep your appointments as scheduled Take your immunizations and boosters as scheduled If your symptoms worsen call your PCP, if no PCP go to Urgent Care Center or Emergency Room Smoking is Dangerous to Your Health. Avoid second hand smoke Call the 24-hour hour crisis hotline for domestic abuse at Arabella Tamayo MD Aug 08, 2017 13:19
--- NOTE | 2017-08-08 13:23 | HHI.DS ---
Discharge Summary Admission Date Aug 06, 2017 at 20:11 Discharge Date: Aug 08, 2017 Admitting Diagnosis Elevated Tn; PSA; Chest Pain (1) Chest pain ICD Code: R07.9 - Chest pain, unspecified Status: Resolved (2) Elevated troponin ICD Code: R74.8 - Abnormal levels of other serum enzymes Status: Acute (3) Cocaine abuse ICD Code: F14.10 - Cocaine abuse, uncomplicated (4) Renal insufficiency ICD Code: N28.9 - Disorder of kidney and ureter, unspecified (5) Cardiomyopathy ICD Code: I42.9 - Cardiomyopathy, unspecified Status: Acute Procedures None Brief History - From Admission HPI from the admitting physician This is a 57-year-old male with a PMH of IVDU, Endocarditis s/p AVR and A-fib who was brought to the ER by friend secondary to complaints of chest pain. 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 Pt admits to recent relapse w/ significant IV drug use in the last 2wks-including Cocaine, Heroin and Methamphetamines. States "I haven't slept in days". Today, notes episode of chest pain, now resolved. Denies fever, chills, cough or SOB. On arrival, BP 146/88, HR 75, O2 sat 98% on RA, Afebrile. CBC unremarkable. Creatinine 1.56, previously 1.11 on 11/17/2015. Troponin 0.09. EKG with LBBB, similar in comparison to previous. UA negative for UTI. CXR with no acute findings. Cardiology Consulted by ER physician, recommended Lovenox. CBC/BMP: 08/07/17 0420 08/07/17 0420 Significant Findings Laboratory Tests Test 08/06/17 18:46 08/06/17 20:30 08/07/17 00:33 08/07/17 04:20 Red Blood Count 4.35 MIL/MM3 (4.50-5.90) 4.18 MIL/MM3 (4.50-5.90) Monocytes (%) (Auto) 8.1 % (0.0-8.0) 9.1 % (0.0-8.0) Blood Urea Nitrogen 32 MG/DL (7-18) 27 MG/DL (7-18) Creatinine 1.56 MG/DL (0.60-1.30) Random Glucose 130 MG/DL (74-106) Calcium Level 8.4 MG/DL (8.5-10.1) 8.0 MG/DL (8.5-10.1) Estimat Glomerular Filtration Rate 46 ML/MIN (>89) 60 ML/MIN (>89) Troponin I 0.09 NG/ML (0.02-0.05) 0.12 NG/ML (0.02-0.05) 0.10 NG/ML (0.02-0.05) Urine Mucus FEW /lpf (OCC) Urine Amphetamines Screen POS (NEG) Urine Cocaine Screen POS (NEG) Hemoglobin 12.9 GM/DL (13.0-17.0) Hematocrit 38.4 % (39.0-51.0) Eosinophils (%) (Auto) 5.3 % (0.0-4.0) Total Protein 6.1 GM/DL (6.4-8.2) Albumin 3.1 GM/DL (3.4-5.0) Total Bilirubin 1.1 MG/DL (0.2-1.0) Chloride Level 109 MEQ/L (98-107) Imaging Last Impressions Myocardial Perfusion Scan Nuc Med 08/08/17 0000 Signed Impressions: Service Date/Time: Tuesday, August 08, 2017 09:44 - CONCLUSION: Dilatation of ventricular cavity ejection fraction of 19%%. No stress-induced ischemia. RISK CATEGORY: High (>3%% Annual Mortality Rate) Elton Marc MD FACR Chest X-Ray 08/06/17 0000 Signed Impressions: Service Date/Time: Sunday, August 06, 2017 19:09 - CONCLUSION: No acute cardiopulmonary disease demonstrated. Hyperexpanded but clear lungs. Tariq Montero MD PE at Discharge GENERAL: This is a well-nourished, well-developed patient, in no apparent distress. CARDIOVASCULAR: Normal rate and regular rhythm. 3 out of 6 ROSETTE murmur best heard over the right upper sternal border. RESPIRATORY: Good respiratory efforts. Breath sounds equal and clear to auscultation bilaterally. GASTROINTESTINAL: Abdomen soft, non-tender, non-distended. Normal active bowel sounds MUSCULOSKELETAL: Extremities without cyanosis, or edema. NEURO: Alert & Oriented x4 to person, place, time, situation. Moves all ext x4 PSYCH: Appropriate mood and affect. Pt update on day of discharge Patient reports he is feeling well. He denies chest pain or shortness of breath. Hospital Course 57-year-old male admitted and treated for the following: Chest Pain: acute onset of chest pain, likely related to recent Cocaine/ Amphetamine IVDU, cardiac enzymes essentially flat. Patient was followed by cardiology. EF 20% by ECHO- likely related to IV drug use & malnutrition, nuclear stress test negative. He is discharged on DENISE inhibitor. Beta-serenity is relatively contraindicated with cocaine use. This can be introduced if the patient shows compliance of the future. Cardiomyopathy believed to be nonischemic. normal coronaries by cath 2013. Not a candidate for ICD currently secondary to noncompliance. Recommendation is outpatient follow-up per cardiology. Case management was consulted to assist the patient with [facility] care. Cardiomyopathy/history of aortic valve replacement: - Agree with cardiology, beta serenity relatively contraindicated given persistent cocaine use. No evidence of fluid overload currently. PRICILLA: Creatinine 1.56 on presentation. Likely secondary to cocaine use. U/a negative for UTI. Renal function much improved. Discontinue IV fluid. Polysubstance abuse including: recent relapse w/ IVDU, +Cocaine/Heroin/ Methamphetamines, reports intermittent hallucinations, +insomnia x3 days. Patient reports he was sober for 4 years prior to his current relapse. Patient has been extensively counseled. He is advised to maintain contact with his sponsor Pt Condition on Discharge: Good Discharge Disposition: Discharge Home Discharge Time: <= 30 minutes Discharge Instructions DIET: Follow Instructions for: Heart Healthy Diet Activities you can perform: Regular-No Restrictions Follow up Referrals: PCP Follow-up with Coralima Griffiths PCP Follow-up with no pcp New Medications: Lisinopril (Lisinopril) 2.5 Mg Tab 2.5 MG PO DAILY, #30 TAB 0 Refills Continued Medications: Aspirin (Aspir-81) 81 Mg Tab 81 MG PO DAILY for cva for 30 Days, TAB 0 Refills Discontinued Medications: Carvedilol 3.125 mg (Coreg 3.125 mg) 3.125 Mg Tab 3.125 MG PO Q12HR for cardiomyopathy for 30 Days, TAB 0 Refills Lisinopril 5 mg (Prinivil 5 mg) 5 Mg Tab 5 MG PO DAILY for cardiomyopathy for 30 Days, TAB 0 Refills Meclizine HCl (Antivert) 25 Mg Tab 25 MG PO Q8HR PRN for DIZZINESS, #30 TAB Arabella Tamayo MD Aug 08, 2017 13:22
== END 2017-08-08 14:50 | disposition home or self-care (01) | DRG 683 ==
LOC: NEPC 18:23 → NEDA 20:11 → N04B 21:42
PROVIDERS: ADMIT Family Medicine; ATTEND Family Medicine
DX: N17.9 Acute kidney failure, unspecified (principal); E46 Unspecified protein-calorie malnutrition; I42.9 Cardiomyopathy, unspecified; R07.9 Chest pain, unspecified; F14.10 Cocaine abuse, uncomplicated; Z91.19 Patient's noncompliance with other medical treatment and regimen; Z95.3 Presence of xenogenic heart valve; F15.10 Other stimulant abuse, uncomplicated; F11.10 Opioid abuse, uncomplicated; F17.210 Nicotine dependence, cigarettes, uncomplicated; I44.7 Left bundle-branch block, unspecified
CPT/HCPCS: 71046; 78452; 80048; 80053; 80307; 81001; 82550; 82552; 84484; 85025; 93005; 93017; 93306; 99291; A9502; J1650; J2785; J7030

== ENCOUNTER 2017-12-17 13:12 | Observation (INO) ==
[2017-12-17] MEDS ORDERED: Aspirin 325 MG Tablet PO ONE (13:41)
--- NOTE | 2017-12-17 13:45 | ED ---
HPI General Chief Complaint: Chest Pain Stated Complaint: chest pain/arm numbness Time Seen by Provider: 12/17/17 13:29 Source: patient, RN notes reviewed and old records reviewed Limitations: no limitations History of Present Illness HPI narrative: 57 y/o male states that over the past couple days he has had tingling in his toes and then an hour ago he developed chest pain. He denies any other concurrent complaints. He denies taking an aspirin prior to arrival. He states he used to use IV drugs and this led to endocarditis and valve replacement but he is not used any for a long time. He denies any other heart history. complaint: chest pain Complete Quality Measures for STEMI Alert Patients Onset (ago): hour(s) Duration: constant Pain location: right chest Severity: moderate Quality: tightness Pain radiation: none Relieving factors: nothing Exacerbating factors: movement Treatments prior to arrival chest pain: none Related Data Allergies Allergy/AdvReac Type Severity Reaction Status Date / Time No Known Allergies Allergy Unverified 12/17/17 13:15 Review of Systems ROS: all other systems reviewed are negative [facility] Medical History Medical History Patient denies medical problems (Acute) Surgical History Surgical History Heart valve replaced (Acute) Social History Social History Substance History: No History of Abuse Second Hand Smoke Exposure: No Smoking Status: Current every day smoker Tobacco Type: Cigarettes How Often Do You Have a Drink Containing Alcohol: Monthly or less Recent Travel in [facility] within the Last 8 Weeks: No Recent Out of Country Travel within the Last 8 Weeks: No Immunization History Tetanus Immunization: Unsure Hx Influenza Vaccine This Season: No Exam Narrative Exam Narrative: GENERAL: 57 y/o male in no apparent distress SKIN: Focused skin assessment warm/dry. HEAD: Atraumatic. Normocephalic. EYES: Pupils equal and round. No scleral icterus. No injection or drainage. ENT: No nasal bleeding or discharge. Mucous membranes pink and moist. NECK: Trachea midline. No JVD. CARDIOVASCULAR: Regular rate and rhythm. RESPIRATORY: No accessory muscle use. Clear to auscultation. Breath sounds equal bilaterally. GASTROINTESTINAL: Abdomen soft, non-tender, nondistended. MUSCULOSKELETAL: No obvious deformities. No clubbing. No cyanosis. No edema. NEUROLOGICAL: Awake and alert. No obvious cranial nerve deficits. Motor grossly within normal limits. Normal speech. PSYCHIATRIC: Appropriate mood and affect; insight and judgment normal. Course Reevaluation(s) Reevaluation #1: ED workup no acute, agrees to chest pain center observation Initial Documented Vital Signs Temperature 98.3 F 12/17/17 13:15 Pulse Rate 57 L 12/17/17 13:15 Respiratory Rate 19 12/17/17 13:15 Blood Pressure 124/73 12/17/17 13:15 Pulse Oximetry 97 12/17/17 13:15 Last Documented Vital Signs Temperature 98.6 F 12/17/17 13:45 Pulse Rate 66 12/17/17 13:45 Respiratory Rate 16 12/17/17 13:45 Blood Pressure 123/74 12/17/17 13:45 Pulse Oximetry 97 12/17/17 13:46 Medical Decision Making MDM Narrative Medical decision making narrative: Will check blood work, imaging and dose with aspirin and reevaluate. Patient's risk factors for heart disease or family history and cigarette use. If initial workup is negative will observe in the chest pain center Medical Screen Exam Complete: Yes Emergency Medical Condition: Yes Differential Diagnosis Differential Diagnosis: Musculoskeletal, gastritis, PE, atypical cardiac Lab Data Lab results reviewed: Yes I reviewed the patient's lab results. Result diagrams: 12/17/17 13:46 12/17/17 13:46 Lab Results 12/17/17 12/17/17 12/17/17 Range/Units 13:46 13:46 13:46 WBC 8.6 (4.0-11.0) th/mm3 RBC 4.60 (4.50-5.90) mil/mm3 Hgb 14.5 (13.0-17.0) gm/dL Hct 43.3 (39.0-51.0) % MCV 94.0 (80.0-100.0) fL MCH 31.4 (27.0-34.0) pg MCHC 33.4 (32.0-36.0) % RDW 13.2 (11.6-17.2) % Plt Count 194 (150-450) th/mm3 MPV 9.0 (7.0-11.0) fL Neut % (Auto) 64.3 (16.0-70.0) % Lymph % (Auto) 23.6 (9.0-44.0) % [place] % (Auto) 7.0 (0.0-8.0) % Eos % (Auto) 4.0 (0.0-4.0) % Baso % (Auto) 1.1 (0.0-2.0) % Neut # (Auto) 5.6 (1.8-7.7) th/mm3 Lymph # (Auto) 2.0 (1.0-4.8) th/mm3 [place] # (Auto) 0.6 (0.0-0.9) th/mm3 Eos # (Auto) 0.3 (0.0-0.4) th/mm3 Baso # (Auto) 0.1 (0.0-0.2) th/mm3 WBC Differential . Differential Comment Auto diff final PT 10.7 (9.8-11.6) sec INR 1.1 Ratio APTT 25.9 (24.3-30.1) sec D-Dimer Quant (PE/DVT) 0.44 (0.00-0.50) mg/L FEU Sodium 141 (136-145) meq/L Potassium 4.5 (3.5-5.1) meq/L Chloride 109 H (98-107) meq/L Carbon Dioxide 24.7 (21.0-32.0) meq/L Anion Gap 7 (5-15) meq/L BUN 23 H (7-18) mg/dL Creatinine 1.19 (0.60-1.30) mg/dL Estimated GFR 63 L (>89) mL/min Random Glucose 85 (74-106) mg/dL Calcium 7.9 L (8.5-10.1) mg/dL Total Bilirubin 0.7 (0.2-1.0) mg/dL AST 22 (15-37) U/L ALT 19 (12-78) U/L Alkaline Phosphatase 57 (45-117) U/L Total Creatine Kinase 180 (39-308) U/L CK-MB (CK-2) 2.1 (0.5-3.6) ng/mL Troponin I 0.03 (0.02-0.05) ng/mL Total Protein 6.9 (6.4-8.2) g/dL Albumin 3.7 (3.4-5.0) g/dL Lipase 85 (73-393) U/L Imaging Data Attestation: I personally reviewed and interpreted this imaging study as follows : Radiologist's impression: Chest X-Ray 12/17/17 13:30 CONCLUSION: No acute cardiopulmonary abnormality is identified. Discharge Plan Discharge Disposition Patient Disposition: 30 Still Patient Discharge Condition Condition: Stable Discharge Details Diagnosis: Chest pain Physicians Team ED Provider: Nichole Salazar Primary Care Provider: Primary Care Amadori,No Discharge Instructions Patient Printed Instructions: Chest Pain (ED) Discharge Interventions Interventions: Vital Signs Last Done: 12/17/17 13:24 Status ED Status: Admitted Observation Patient
--- NOTE | 2017-12-17 13:55 | XR ---
EXAM DATE: 12/17/2017 1:52 PM EDT AGE/SEX: 57 years / Male INDICATIONS: Chest pain. CLINICAL DATA: This is the patient's initial encounter. Patient reports that signs and symptoms have been present for 1 day and indicates a pain score of 3/10. MEDICAL/SURGICAL HISTORY: Vertigo. Former IVDU. Smoker . Valve replacement 2013. COMPARISON: [facility] [place], CHEST PA & LAT, 08/06/2017. . FINDINGS: Portable upright AP view of the chest demonstrates a normal-sized cardiac silhouette post median ster notomy and valve replacement. EKG lines overlie the patient. No pleural effusion, airspace consolidat ion, or pneumothorax is visualized. The bones and soft tissues demonstrate no acute abnormality. CONCLUSION: No acute cardiopulmonary abnormality is identified. Electronically signed by: Tariq Edwards MD 12/17/2017 1:53 PM EDT
[2017-12-17 14:35] LABS: Baso # (Auto) 0.1 th/mm3 (0.0-0.2); Baso % (Auto) 1.1 % (0.0-2.0); Eos # (Auto) 0.3 th/mm3 (0.0-0.4); Hematocrit 43.3 % (39.0-51.0); Hemoglobin 14.5 gm/dL (13.0-17.0); Lymph % (Auto) 23.6 % (9.0-44.0); Mean Corpuscular HGB Conc 33.4 % (32.0-36.0); Mean Corpuscular Hemoglobin 31.4 pg (27.0-34.0); Mono # (Auto) 0.6 th/mm3 (0.0-0.9); Neut # (Auto) 5.6 th/mm3 (1.8-7.7); Neut % (Auto) 64.3 % (16.0-70.0); Platelet Count 194 th/mm3 (150-450); Red Cell Distribution Width 13.2 % (11.6-17.2); White Blood Count 8.6 th/mm3 (4.0-11.0)
[2017-12-17 14:59] LABS: Alkaline Phosphatase 57 U/L (45-117); Creatine Kinase 180 U/L (39-308); Total Protein 6.9 g/dL (6.4-8.2); Troponin I 0.03 ng/mL (0.02-0.05)
[2017-12-17 15:01] LABS: Alanine Aminotransferase 19 U/L (12-78); Albumin 3.7 g/dL (3.4-5.0); Anion Gap 7 meq/L (5-15); Aspartate Aminotransferase 22 U/L (15-37); Blood Urea Nitrogen 23 mg/dL (7-18); Calcium 7.9 mg/dL (8.5-10.1); Carbon Dioxide 24.7 meq/L (21.0-32.0); Chloride 109 meq/L (98-107); Glomerular Filtration Rate 63 mL/min (>89); Glucose,Random 85 mg/dL (74-106); Lipase 85 U/L (73-393); Potassium 4.5 meq/L (3.5-5.1); Sodium 141 meq/L (136-145)
[2017-12-17 15:03] LABS: Activated Partial Thrombo Time 25.9 sec (24.3-30.1); D-Dimer 0.44 mg/L FEU (0.00-0.50); INR 1.1 Ratio; Prothrombin Time 10.7 sec (9.8-11.6)
[2017-12-17 15:12] LABS: Creatine Kinase MB 2.1 ng/mL (0.5-3.6)
[2017-12-17] MEDS ORDERED: Acetaminophen 500 MG Tablet PO PRN (16:25)
[2017-12-17 17:03] LABS: Amphetamine Screen,Urine Neg (Neg); Barbiturate Screen,Urine Neg (Neg); Cannabinoid Screen,Urine Neg (Neg); Cocaine Screen,Urine Neg (Neg)
[2017-12-17 17:12] LABS: Opiate Screen,Urine Neg (Neg)
[2017-12-17 18:54] LABS: Troponin I 0.03 ng/mL (0.02-0.05)
[2017-12-17 22:09] LABS: Troponin I 0.04 ng/mL (0.02-0.05)
[2017-12-18 04:43] VITALS: O2SAT 97
[2017-12-18 08:34] VITALS: BP 135/81; PULSE 57; RESP 16; TEMP 97.6
[2017-12-18] MEDS ORDERED: Aspirin 325 MG Tablet PO SCH (09:00)
--- NOTE | 2017-12-18 10:06 | P.HPCA ---
History of Present Illness Service: Chest pain center Primary Care Physician: No Primary Care Physician Chief Complaint: Right chest pain in the right arm numbness Review of Systems All other systems reviewed negative except as stated in HPI PMFSH - History History Provided By: Patient - Medical History Medical History: Medical History (Last Updated 12/18/17 @ 09:55 by Puma Aguirre MD) Cardiomyopathy as manifestation of underlying disease (Acute) Patient denies medical problems - Surgical History Surgical History: Surgical History (Last Updated 12/18/17 @ 09:55 by Puma Aguirre MD) Heart valve replaced (Acute) - Family History Family History: Family History (Last Updated 12/18/17 @ 09:59 by Puma Aguirre MD) Father Atherosclerosis of arteries Mother Atherosclerosis of arteries - Tobacco History Second Hand Smoke Exposure: No Tobacco Use In Past 30 Days: Yes Smoking Status: Never smoker Tobacco Type: Cigarettes - Alcohol History How Often Do You Have a Drink Containing Alcohol: Never - Substance Use History Substance History: No History of Abuse - Travel History Recent Travel in the [facility] Within the Last 8 Weeks: No Recent Travel Out of the Country Within the Last 8 Weeks: No - Immunization History Tetanus Immunization: Unsure Hx Influenza Vaccine This Season: No Medications and Allergies Active Medications: Active Medications Acetaminophen (Tylenol) 500 mg PO Q4H PRN PRN Reason: HEADACHE Aspirin (Aspirin) 325 mg PO DAILY [facility] Last Admin: 12/18/17 08:29 Dose: 325 mg Nitroglycerin (Nitrostat Sl) 0.4 mg SL Q5M PRN PRN Reason: CHEST PAIN Ondansetron HCl (Zofran Inj) 4 mg IV.PUSH Q6H PRN PRN Reason: NAUSEA Sodium Chloride (Ns Flush) 2 ml IV.FLUSH UNSCH PRN PRN Reason: FLUSH AFTER USING IV ACCESS Sodium Chloride (Ns Flush) 2 ml IV.FLUSH BID [facility] Last Admin: 12/18/17 08:29 Dose: Not Given Allergies Allergy/AdvReac Type Severity Reaction Status Date / Time No Known Allergies Allergy Unverified 12/17/17 13:15 Exam Vital signs: Vital Signs 12/17/17 13:15 12/17/17 13:24 12/17/17 13:45 Temperature 98.3 F 98.7 F 98.6 F Pulse Rate 57 L 75 66 Respiratory Rate 19 16 16 Blood Pressure 124/73 184/103 H 123/74 Pulse Oximetry 97 100 96 12/17/17 13:46 12/17/17 19:12 12/17/17 20:09 Temperature 97.6 F Pulse Rate 61 Respiratory Rate 18 Blood Pressure 129/77 Pulse Oximetry 97 98 96 12/18/17 00:00 12/18/17 04:00 12/18/17 08:00 Temperature 97.9 F 97.7 F 97.6 F Pulse Rate 53 L 55 L 57 L Respiratory Rate 18 18 16 Blood Pressure 112/55 L 125/80 135/81 Pulse Oximetry 98 97 97 Intake & Output 12/17/17 12/18/17 12/18/17 18:59 06:59 18:59 Intake Total 1200 / 1200 Balance 1200 / 1200 Weight 68.039 kg Intake: Oral 1200 / 1200 Other: # Voids 3 Date of Last Bowel Movement 12/18/17 # Bowel Movements 1 Narrative: Somewhat thin but well-developed white male in no acute distress head normocephalic atraumatic eyes PERRLA EOMI sclera clear mouth mucous membranes moist and well papillated no lesions neck supple no JVD masses nodes or bruits chest well-healed sternotomy scar auscultation is clear with no rales wheezes or rhonchi Cardiovascular regular rhythm soft 1/6 systolic murmur but no gallop or rub S2 is somewhat prominent the patient has known AVR Abdomen is soft nontender no guarding or rebound no hepatosplenomegaly Extremities no clubbing cyanosis or edema Neurologic cranial nerves are intact motor is 5+ to all extremities Results 12/17/17 13:46 12/17/17 13:46 Cardiac Enzymes 12/17/17 12/17/17 12/17/17 Range/Units 13:46 17:32 20:56 AST 22 (15-37) U/L CK-MB (CK-2) 2.1 (0.5-3.6) ng/mL Troponin I 0.03 0.03 0.04 (0.02-0.05) ng/mL Coagulation 12/17/17 Range/Units 13:46 PT 10.7 (9.8-11.6) sec APTT 25.9 (24.3-30.1) sec CBC 12/17/17 Range/Units 13:46 WBC 8.6 (4.0-11.0) th/mm3 RBC 4.60 (4.50-5.90) mil/mm3 Hgb 14.5 (13.0-17.0) gm/dL Hct 43.3 (39.0-51.0) % Plt Count 194 (150-450) th/mm3 Neut # (Auto) 5.6 (1.8-7.7) th/mm3 Lymph # (Auto) 2.0 (1.0-4.8) th/mm3 [place] # (Auto) 0.6 (0.0-0.9) th/mm3 Eos # (Auto) 0.3 (0.0-0.4) th/mm3 Baso # (Auto) 0.1 (0.0-0.2) th/mm3 Comprehensive Metabolic Panel 12/17/17 Range/Units 13:46 Sodium 141 (136-145) meq/L Potassium 4.5 (3.5-5.1) meq/L Chloride 109 H (98-107) meq/L Carbon Dioxide 24.7 (21.0-32.0) meq/L BUN 23 H (7-18) mg/dL Creatinine 1.19 (0.60-1.30) mg/dL Calcium 7.9 L (8.5-10.1) mg/dL AST 22 (15-37) U/L ALT 19 (12-78) U/L Alkaline Phosphatase 57 (45-117) U/L Total Protein 6.9 (6.4-8.2) g/dL Albumin 3.7 (3.4-5.0) g/dL Intake and Output 12/17/17 12/18/17 12/18/17 22:59 06:59 14:59 Intake Total 1200 / 1200 Balance 1200 / 1200 Intake: Oral 1200 / 1200 Other: # Voids 3 Date of Last Bowel Movement 12/18/17 # Bowel Movements 1 EKG interpretations - EKG EKG results cardiology: not changed from: Caprini VTE Risk Assessment Caprini VTE Risk Assessment: No/Low Risk (score <= 1) Caprini Risk Assessment Model: Point Value = 1 Point Value = 2 Point Value = 3 Point Value = 5 Age 41-60 Minor surgery BMI > 25 kg/m2 Swollen legs Varicose veins or History of unexplained or recurrent spontaneous Oral contraceptives or hormone replacement Sepsis (< 1 month) Serious lung disease, including pneumonia (< 1 month) Abnormal pulmonary function Acute myocardial infarction Congestive heart failure (< 1 month) History of inflammatory bowel disease Medical patient at bed rest Age 61-74 Arthroscopic surgery Major open surgery (> 45 min) Laparoscopic surgery (> 45 min) Malignancy Confined to bed (> 72 hours) Immobilizing plaster cast Central venous access Age >= 75 History of VTE Family history of VTE Factor V Leiden Prothrombin [id number] Lupus anticoagulant Anticardiolipin antibodies Elevated serum homocysteine Heparin-induced thrombocytopenia Other congenital or acquired thrombophilia Stroke (< 1 month) Elective arthroplasty Hip, pelvis, or leg fracture Acute spinal cord injury (< 1 month) Prophylaxis Regimen: Total Risk Factor Score Risk Level Prophylaxis Regimen 0-1 Low Early ambulation 2 Moderate Order ONE of the following: *Sequential Compression Device (SCD) *Heparin 5000 units SQ BID 3-4 Higher Order ONE of the following medications: *Heparin 5000 units SQ TID *Enoxaparin/Lovenox 40 mg SQ daily (WT < 150 kg, CrCl > 30 mL/min) *Enoxaparin/Lovenox 30 mg SQ daily (WT < 150 kg, CrCl > 10-29 mL/min) *Enoxaparin/Lovenox 30 mg SQ BID (WT < 150 kg, CrCl > 30 mL/min) AND/OR *Sequential Compression Device (SCD) 5 or more Highest Order ONE of the following medications: *Heparin 5000 units SQ TID (Preferred with Epidurals) *Enoxaparin/Lovenox 40 mg SQ daily (WT < 150 kg, CrCl > 30 mL/min) *Enoxaparin/Lovenox 30 mg SQ daily (WT < 150 kg, CrCl > 10-29 mL/min) *Enoxaparin/Lovenox 30 mg SQ BID (WT < 150 kg, CrCl > 30 mL/min) AND *Sequential Compression Device (SCD) Assessment and Plan - Plan This patient has been previously thoroughly evaluated he has a catheterization in 2013 which was negative he had subsequent SBE and was extensively evaluated with placement of a bioprosthetic aortic valve. He has been reevaluated since with an echocardiogram which showed good valvular function but severe dilated cardiomyopathy. He is also been reevaluated with a nuclear stress test which showed no ischemia but again dilated cardiomyopathy with less than 20% ejection fraction. 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 He continues to smoke in spite of his admonitions in the past to stop and has not continued with the beta-blockers and DENISE inhibitors as previously prescribed. His current presentation has ruled out for ACS and with prior negative documentation further evaluation was not felt appropriate at this time. He was admonished to stop smoking, remain drug-free, and arrange for outpatient follow-up with the retail aide of his choice in spite of the cost. He agrees to do so since he does have some income. He will be discharged to arrange his follow-up as an outpatient. He is reminded of the importance of taking the medication she has been prescribed. - Attending Attestation I attest to the need for evaluation and treatment is carried out during this hospitalization on the basis of the patients history of AVR and known cardiomyopathy H&P: Quality - VTE Deep Vein Thrombosis/Pulmonary Embolism Present on Admission: No
--- NOTE | 2017-12-18 11:59 | ECG ---
Date Performed: 12/17/2017 Time Performed: 21:45:11 PTAGE: 57 years EKG: SINUS BRADYCARDIA MARKED LEFT AXIS DEVIATION LEFT BUNDLE BRANCH BLOCK ABNORMAL ECG No signi ficant change PREVIOUS TRACING : 12/17/2017 17.36 DOCTOR: Puma Aguirre Interpretating Date/Time 12/18/2017 11:58:35
--- NOTE | 2017-12-18 12:00 | ECG ---
Date Performed: 12/17/2017 Time Performed: 13:57:24 PTAGE: 57 years EKG: SINUS BRADYCARDIA MARKED LEFT AXIS DEVIATION LEFT BUNDLE BRANCH BLOCK ABNORMAL ECG Cannot r ule out anterior injury age-indeterminate but unchanged from prior tracing PREVIOUS TRACING : 08/06/2017 18.38 DOCTOR: Puma Aguirre Interpretating Date/Time 12/18/2017 12:00:27
--- NOTE | 2017-12-18 12:00 | ECG ---
Date Performed: 12/17/2017 Time Performed: 17:36:50 PTAGE: 57 years EKG: SINUS BRADYCARDIA MARKED LEFT AXIS DEVIATION LEFT BUNDLE BRANCH BLOCK ABNORMAL ECG PREVIOUS TRACING : 12/17/2017 13.57 DOCTOR: Puma Aguirre Interpretating Date/Time 12/18/2017 11:59:57
== END 2017-12-18 10:22 | disposition home or self-care (01) ==
LOC: NEDA 13:12 → NEPC 13:12 → NEDA 17:49 → NEPGCP 18:12
PROVIDERS: ADMIT Internal Medicine Interventional Cardiology; ATTEND Internal Medicine Interventional Cardiology